=== PATIENT | male | born 1955 | race Two or more races ===

== ENCOUNTER 2017-02-17 12:40 | Outpatient (CLI) | payer MEDICARE, OTHER | END 2017-02-17 23:59 | disposition home health service (06) | LOC: WOU 12:40 | PROVIDERS: ATTEND Specialist | DX: E83.59 Other disorders of calcium metabolism (principal); I12.0 Hypertensive chronic kidney disease with stage 5 chronic kidney disease or end stage renal disease; N18.6 End stage renal disease; Z99.2 Dependence on renal dialysis; I70.263 Atherosclerosis of native arteries of extremities with gangrene, bilateral legs; L97.829 Non-pressure chronic ulcer of other part of left lower leg with unspecified severity; L97.819 Non-pressure chronic ulcer of other part of right lower leg with unspecified severity; Z98.62 Peripheral vascular angioplasty status | CPT/HCPCS: G0463 ==

== ENCOUNTER 2017-05-17 18:03 | Emergency (ER) | payer MEDICARE, OTHER ==
[~2017-05-17] VITALS: Ht 177.8 cm; Wt 81.6 kg
[2017-05-17 18:58] LABS: BASOPHILS # (AUTO) 0.1 /CMM (0.0-0.2); EOSINOPHILS # (AUTO) 0.1 /CMM (0.0-0.7); EOSINOPHILS % (AUTO) 1.4 % (0.0-6.0); HEMATOCRIT 30 % (39-51); HEMOGLOBIN 9.7 g/dL (13.5-17.5); LYMPHOCYTES # (AUTO) 0.7 /CMM (0.8-4.8); LYMPHOCYTES % (AUTO) 8.2 % (20.0-44.0); MEAN CORPUSCULAR HEMOGLOBIN 30 PG (26.0-33.0); MEAN CORPUSCULAR HGB CONC 32 g/dl (31.0-36.0); MEAN CORPUSCULAR VOLUME 94 fL (80-96); MONOCYTES # (AUTO) 0.4 /CMM (0.1-1.30); NEUTROPHILS # (AUTO) 7.6 /CMM (1.8-8.9); NEUTROPHILS % (AUTO) 85.4 % (43.0-81.0); PLATELET COUNT (AUTO) 307 /CMM (150-450); RDW COEFFICIENT OF VARIATION 17.3 (11.5-15.0); RED BLOOD CELL COUNT(AUTO) 3.23 MIL/uL (4.5-6.0); WHITE BLOOD COUNT (AUTO) 8.9 K/uL (4.3-11.0)
[2017-05-17 19:23] LABS: CALCIUM, SERUM 10.6 mg/dL (8.5-10.1); CREATININE 7.4 mg/dL (0.6-1.3); POTASSIUM 4.8 mmol/L (3.5-5.1)
[2017-05-17 19:31] LABS: TROPONIN I 0.028 ng/mL (0.00-0.056)
--- NOTE | 2017-05-17 20:20 | NUR ---
[employer] ANALYST [facility]
--- NOTE | 2017-05-17 20:45 | NUR ---
MARY JO DENNISON ON THE PHONE WITH DR PARRA
[2017-05-17] MEDS ORDERED: MINOXIDIL (2.5MG) 2.5 MG TABLET PO SCH (21:00)
--- NOTE | 2017-05-17 21:07 | NUR ---
REQUESTED JENARO PEREZ TRANSPORTATION GOING TO [facility]
--- NOTE | 2017-05-17 21:15 | NUR ---
ETA 45-60 MIN FOR TRANSPORT
[2017-05-17] MEDS ORDERED: MINOXIDIL (2.5MG) 2.5 MG TABLET ONE (21:29)
[2017-05-17 21:38] VITALS: BP 180/110
== END 2017-05-17 21:42 | disposition home or self-care (01) ==
LOC: ER 18:04
DX: I12.0 Hypertensive chronic kidney disease with stage 5 chronic kidney disease or end stage renal disease (principal); N18.6 End stage renal disease
CPT/HCPCS: 36415; 80048; 84484; 85025; 93005; 99285; A4606; Z7610